=== PATIENT | male | born 1935 | race Caucasian/White ===

== ENCOUNTER → 2018-09-28 | Outpatient (REF) | payer MEDICARE, OTHER | LOC: M SFHCLERA 11:26 | PROVIDERS: ATTEND Nurse Practitioner Family | DX: J02.9 Acute pharyngitis, unspecified (principal) ==

== ENCOUNTER → 2018-09-28 | Outpatient (CLI) | payer MEDICARE, OTHER ==
--- NOTE | 2018-09-28 11:34 | REP ---
Clinical: Dysphasia. Technique: AP and lateral soft tissue neck radiographs. Findings: Age-related osteopenia and degenerative changes to the cervical spine noted along with postsurgical changes including anterior fixation at C4-5. Cartilaginous calcifications overlie the soft tissues. No obvious acute process identified by radiographic evaluation. Impression: No obvious acute process. Electronically Signed by Chet Carver MD 09/28/2018 11:25 A
== END ==
LOC: M LRY 11:02
PROVIDERS: ATTEND Nurse Practitioner Family
DX: R13.10 Dysphagia, unspecified (principal); M85.88 Other specified disorders of bone density and structure, other site
CPT/HCPCS: 70360; 86308; 87880; G0463